=== PATIENT | male | born 1970 | race African-American/Black ===

== ENCOUNTER → 2018-03-15 | Outpatient (CLI) | payer OTHER | LOC: COL.VAS 11:58 | DX: D86.0 Sarcoidosis of lung (principal); I07.1 Rheumatic tricuspid insufficiency ==

== ENCOUNTER → 2019-09-22 | Outpatient (CLI) | payer OTHER | LOC: COL.PUL 10:51 | DX: I27.20 Pulmonary hypertension, unspecified (principal); D86.0 Sarcoidosis of lung ==

== ENCOUNTER → 2019-10-05 | Outpatient (CLI) | payer OTHER ==
--- NOTE | 2019-10-05 09:52 | NUR ---
Patient referred by Harman Peterson MD for a Complete PFT with the diagnosis of sarcoidosis. Patient given instruction, followed well with good effort. Bronchodilator of 2.5mg Albuterol given, patient tolerated well. During DLCO challenge patient passed out. Patient was noted to have minor jerking movements during this time. Assisted aptient, patient remained in chair, did not fall, or hit head during this episode. Patient states "I feel light headed when holding my breath" "I have not ever passed out from it before" He wished to finish the PFT at this time. Vitals checked. BP" 136/82, SPO2: 98%, HR:70. Offered to take patient to the ER for further examination. Patient refused. Patient did obtain a ride to take him back to [place] or [place]. Titus Dickey, STRIP MACHINE OPERATOR
== END ==
LOC: COL.PUL 07:46
DX: I27.20 Pulmonary hypertension, unspecified (principal); D86.0 Sarcoidosis of lung

== ENCOUNTER → 2020-10-11 | Outpatient (CLI) | payer OTHER | LOC: COL.VAS 08:00 | DX: I27.20 Pulmonary hypertension, unspecified (principal); I34.0 Nonrheumatic mitral (valve) insufficiency ==

== ENCOUNTER → 2021-10-16 | Outpatient (CLI) | payer OTHER | LOC: COL.PUL 08-29 08:00 → COL.VAS 10:40 → COL.PUL 10:40 | DX: I27.20 Pulmonary hypertension, unspecified (principal); J45.40 Moderate persistent asthma, uncomplicated ==